=== PATIENT | male | born 1945 | race Caucasian/White ===

== ENCOUNTER 2024-07-25 10:25 | Emergency (ER) | payer MEDICARE, OTHER, SELFPAY ==
[2024-07-25 10:26] VITALS: BMI 28.0
--- NOTE | 2024-07-25 10:28 | EKG_ITS ---
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
[2024-07-25 10:36] VITALS: BP 136/73; PULSE 82; RESP 19; TEMP 37.1; O2SAT 95
--- NOTE | 2024-07-25 10:42 | XR_ITS ---
Examination: AP chest single view Technique one AP portable semiupright chest single view Exam date and time: July 25, 2024 1112 hours Comparison April 07, 2023 INDICATIONS: Onset acute chest pain today. FINDINGS: No significant cardiac enlargement Stable position cardiac leads. No pneumonia or pulmonary edema IMPRESSION: No pneumonia or pulmonary edema
[2024-07-25] MEDS: ASPIRIN 81 MG CHEW 324 MG PO (10:54)
[2024-07-25 11:05] VITALS: BP 134/82; PULSE 88; RESP 18; TEMP 37.1; O2SAT 93
--- NOTE | 2024-07-25 11:15 | PD.EDCHEST ---
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 Described as aching in sensation, initially rating as severe. However, since arriving to the ED and during my evaluation, patient is pain free. 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 No other associated symptoms or complaints reported. Denies fevers, chills, sweats, abdominal pain, n/v/d, or urinary symptoms. Related Data Home Medications ?Medication ?Instructions ?Recorded ?Confirmed ticagrelor 90 mg tablet (Brilinta) 90 mg PO BID 01/10/20 11/09/22 aspirin 81 mg capsule 81 mg PO QDAY 11/08/22 11/09/22 ezetimibe 10 mg tablet 10 mg PO QDAY 11/08/22 11/09/22 lisinopril 10 mg tablet 10 mg PO QDAY 11/08/22 11/09/22 pantoprazole 40 mg tablet,delayed 40 mg PO QDAY 11/08/22 11/09/22 release spironolactone 25 mg tablet 25 mg PO QDAY 11/08/22 11/09/22 Allergies Allergy/AdvReac Type Severity Reaction Status Date / Time No Known Allergies Allergy Verified 07/25/24 10:28 Review of Systems Review of Systems Systems Reviewed: All systems reviewed, normal except as documented Past Medical History Past Medical History CARDIAC: Positive Cardiac Disorders and Hypertension Surgical History SURGICAL: Positive Coronary Artery Bypass Graft, Coronary Stent, Abdominal Surgery and Bowel Surgery Social History SMOKING STATUS: Never smoker ED Exam General Limitations: Present no limitations General appearance: Present alert and in no apparent distress (Patient walks with a cane) Head Head exam: Present atraumatic, normocephalic and normal inspection Eye Eye exam: Present normal appearance, PERRL and EOMI ENT ENT exam: Present normal exam, normal oropharynx and mucous membranes moist Neck Neck exam: Present normal inspection, full ROM and trachea midline Chest Chest inspection: Present normal inspection and symmetric chest wall rise Respiratory Respiratory exam: Present normal lung sounds bilaterally Cardiovascular Cardiovascular exam: Present regular rate, normal rhythm and normal heart sounds Abdominal Exam Abdominal exam: Present soft and normal bowel sounds Extremities Exam Extremities exam: Present normal inspection and full ROM Back Exam Back exam: Present normal inspection and full ROM Neurological Exam Neurological exam: Present alert, oriented X3 and CN II-XII intact Psychiatric Psychiatric exam: Present normal affect and normal mood Skin Skin exam: Present warm, dry, intact and normal color Course Course Course Narrative: chest xray ordered to help determine etiology of chest pain. Quality Measures none Orders Category Date Time Status Software Systems Architect STAT Care 07/25/24 10:42 Completed Continuous Pulse Oximetry ONCE Care 07/25/24 10:42 Completed EKG (ED ONLY) *Do not use* NOW Care 07/25/24 10:28 Completed Insert IV STAT Care 07/25/24 10:42 Completed Discharge Routine Discharge 07/25/24 13:46 Active EKG (ED Only) Stat Exams 07/25/24 10:28 Draft XR chest 1V portable Stat Exams 07/25/24 10:42 Completed B-Type Natriuretic Peptide Stat Lab 07/25/24 10:54 Completed CBC Stat Lab 07/25/24 10:54 Completed Comprehensive Metabolic Panel Stat Lab 07/25/24 10:54 Completed Lipase Stat Lab 07/25/24 10:54 Completed Magnesium Stat Lab 07/25/24 10:54 Completed Partial Thromboplastin Time Stat Lab 07/25/24 10:54 Completed Troponin I Stat Lab 07/25/24 10:54 Completed Troponin I Stat Lab 07/25/24 13:10 Completed Aspirin Chew Med 07/25/24 10:42 Discontinued 324 mg PO X1 ONE Vital Signs Vital signs: Vital Signs Temperature 98.7 F 07/25/24 10:36 Pulse Rate 82 07/25/24 10:36 Respiratory Rate 19 07/25/24 10:36 Blood Pressure 136/73 H 07/25/24 10:36 Pulse Oximetry (%) 95 07/25/24 10:36 Oxygen Delivery Method Room Air 07/25/24 10:36 Pulse ox is 95% on room air which is adequate. Chest Pain MDM Narrative MDM Narrative:: Marissa Rhodes am scribing for and in the presence of Dr. Rutherford. Patient data External records reviewed:: [facility] previous records (I reviewed ED visit on 01/10/2020 for sleep apnea ) Clinical information provided by:: patient Social determinants that could affect healthcare access:: none Patient has the following chronic illnesses:: Hypertension How is presenting disease/condition affected by chronic disease/condition?: uneffected by Evaluation data The following diagnostics were reviewed and interpreted by me:: lab results, radiology exam(s) and EKG tracing(s) (Sinus rhythm with first degree AV block, rate 77, no acute ST or T-wave changes. ) Lab and/or radiology exams considered but not ordered:: None Interpretation Summary: Ordering Physician: Benson Rutherford MD Date of Service: 07/25/24 Procedure(s): XR chest 1V portable Accession Number(s): [id number] cc: Benson Rutherford MD; Keyon Hankins MD; NO PRIMARY/FAMILY,PHYSICIAN~ Examination: AP chest single view Technique one AP portable semiupright chest single view Exam date and time: July 25, 2024 1112 hours Comparison April 07, 2023 INDICATIONS: Onset acute chest pain today. FINDINGS: No significant cardiac enlargement Stable position cardiac leads. No pneumonia or pulmonary edema IMPRESSION: No pneumonia or pulmonary edema Dictated By: Keyon Hankins MD Signed By: <Electronically signed by Keyon Hankins MD in [place]> 07/25/24 1145 Medications / Prescriptions Medications or Prescriptions considered but not ordered:: None Medication administrations:: Medication Administration History Discontinued Medications Aspirin (Aspirin 81 Mg Chew) 324 mg PO X1 ONE Stop: 07/25/24 10:43 Last Admin: 07/25/24 10:54 Dose: 243 mg Documented By: DO Comments: pt took 81mg at home prior to arrival. pt given 243mg to equal 324mg per providers orders See above Consultations Consultation(s) initiated? (list below): No Diagnosis Chest Pain Differential Diagnosis: pneumothorax, stable angina, unstable angina pectoris, atypical chest pain, st elevation myocardial infarction, costochondritis, chest pain and biliary colic Most likely diagnosis given after review of the tests above:: Chest pain Admission Indicated Admission indicated?: not indicated Admission Request Was there a request for admission?: No Disposition Plan Disposition Plan: Discharge Discharge Attestation Discharge Attestation: The patient and all family members were given an opportunity to ask questions and understood the discharge instructions. Discharge instructions specifically effects, indications for sooner follow up or return to the emergency department, and the expected course of current diagnosis. Patient condition: Stable Discharge Plan Plan Patient Disposition: HOME (Self Care) Patient condition on transfer: Stable Prescriptions/Referrals Prescriptions/Med Rec: No Action Brilinta 90 mg Tablet 90 mg PO BID spironolactone 25 mg tablet 25 mg PO QDAY pantoprazole 40 mg tablet,delayed release (DR/EC) 40 mg PO QDAY lisinopril 10 mg tablet 10 mg PO QDAY ezetimibe 10 mg tablet 10 mg PO QDAY aspirin 81 mg Capsule 81 mg PO QDAY Referrals: No Primary/Family,Physician [Primary Care Provider] - In 1 week Problem List Clinical Impression: Chest pain Patient/Caregiver Discharge Instructions Education Materials: ED Chest Pain, Uncertain Cause Print Language: Sammarinese Stand Alone Forms: Gail Award Info., Patient Portal Info Letter
[2024-07-25 11:24] LABS: Basophils % (Auto) 0 % (0-2.5); Eosinophils # (Auto) 0.1 Thou/mm3 (0.0-0.5); Eosinophils % (Auto) 1 % (0-10); Hematocrit 47.5 % (41.0-53.0); Hemoglobin 16.3 g/dL (13.5-16.0); Immature Granulocytes % (Auto) 0 % (0-0); Immature Granulocytes Auto 0.02 Thou/mm3 (0.00-0.00); Lymphocytes # (Auto) 1.2 Thou/mm3 (1.0-4.8); Lymphocytes % (Auto) 11 % (10-50); Mean Corpuscular HGB Conc 34.3 g/dl (31.0-37.0); Mean Corpuscular Hemoglobin 32.2 pg (25.0-35.0); Mean Corpuscular Volume 94 fL (80-100); Monocytes # (Auto) 0.8 Thou/mm3 (0.0-0.8); Monocytes % (Auto) 7 % (0-12); Neutrophils # (Auto) 8.6 Thou/mm3 (1.8-7.7); Neutrophils % (Auto) 80 % (37-80); Nucleated Red Blood Cell % 0 /100 WBC (0); Platelet Count 260 Thou/mm3 (140-440); RDW Standard Deviation 43.8 fL (35.1-43.9); Red Blood Count 5.06 Miln/mm3 (4.50-5.90); White Blood Count 10.7 Thou/mm3 (3.8-10.6)
[2024-07-25 11:39] LABS: Partial Thromboplastin Time 26.2 Seconds (22.0-36.0)
[2024-07-25 11:56] LABS: Alanine Aminotransferase 26 U/L (10-49); Albumin, Serum 4.4 gm/dL (3.4-4.8); Albumin/Globulin Ratio 1.6 (1.2-2.2); Alkaline Phosphatase 52 U/L (46-116); Anion Gap 8 (7-16); Aspartate Amino Transferase 23 U/L (0-34); B-Type Natriuretic Peptide 60 pg/mL (0-100); BUN/Creatinine Ratio 13 Ratio (12-20); Bilirubin,Total 0.5 mg/dL (0.3-1.2); Blood Urea Nitrogen 17 mg/dL (9-23); Calcium 9.8 mg/dL (8.3-10.6); Calcium (Corrected) 9.8 mg/dL (8.5-10.1); Carbon Dioxide 28.6 mMol/L (20.0-31.0); Chloride 106 mMol/L (98-107); Creatinine (Component) 1.3 mg/dL (0.6-1.3); Estimated Creatinine Clearance 60.1 mL/min (>60); Globulin 2.7 gm/dL (2.3-3.5); Glucose 174 mg/dL (74-106); Lipase 45 U/L (12-53); Magnesium 2.1 mg/dL (1.6-2.6); Osmolality,Calculated 290 (275-295); Potassium 4.9 mMol/L (3.4-5.1); Sodium 143 mMol/L (136-145); Total Protein 7.1 gm/dL (5.7-8.2); Troponin I < 0.020 ng/mL (0.0-0.045); eGFR 56 See Note
[2024-07-25 12:00] VITALS: BP 139/72; PULSE 77; RESP 25; TEMP 37.1; O2SAT 100
[2024-07-25 12:07] VITALS: PULSE 66
[2024-07-25 13:43] LABS: Troponin I < 0.020 ng/mL (0.0-0.045)
== END 2024-07-25 14:19 | disposition home or self-care (01) ==
PROVIDERS: Emergency Provider Emergency Medicine
DX: R07.2 Precordial pain (principal); I44.0 Atrioventricular block, first degree; I10 Essential (primary) hypertension
CPT/HCPCS: 36415; 71045; 80053; 83690; 83735; 83880; 84484; 85025; 85730; 93005; 99284; A9270

== ENCOUNTER → 2024-10-15 | Outpatient (CLI) | payer MEDICARE, OTHER, SELFPAY ==
[2024-10-15 08:56] LABS: Basophils # (Auto) 0.0 Thou/mm3 (0.0-0.2); Basophils % (Auto) 0 % (0-2.5); Eosinophils # (Auto) 0.2 Thou/mm3 (0.0-0.5); Eosinophils % (Auto) 2 % (0-10); Hematocrit 47.6 % (41.0-53.0); Hemoglobin 16.3 g/dL (13.5-16.0); Immature Granulocytes Auto 0.02 Thou/mm3 (0.00-0.00); Lymphocytes # (Auto) 1.7 Thou/mm3 (1.0-4.8); Lymphocytes % (Auto) 24 % (10-50); Mean Corpuscular HGB Conc 34.2 g/dl (31.0-37.0); Mean Corpuscular Hemoglobin 32.1 pg (25.0-35.0); Mean Corpuscular Volume 94 fL (80-100); Monocytes # (Auto) 0.8 Thou/mm3 (0.0-0.8); Monocytes % (Auto) 10 % (0-12); Neutrophils # (Auto) 4.6 Thou/mm3 (1.8-7.7); Neutrophils % (Auto) 63 % (37-80); Nucleated Red Blood Cell # 0.00 Thou/mm3 (0.00-0.00); Nucleated Red Blood Cell % 0 /100 WBC (0); Platelet Count 217 Thou/mm3 (140-440); RDW Standard Deviation 44.4 fL (35.1-43.9); Red Blood Count 5.07 Miln/mm3 (4.50-5.90); White Blood Count 7.3 Thou/mm3 (3.8-10.6)
[2024-10-15 08:58] LABS: INR 1.1 (0.9-1.3); Partial Thromboplastin Time 27.1 Seconds (22.0-36.0); Prothrombin Time 11.7 Seconds (9.0-12.2)
[2024-10-15 09:04] LABS: Glucose Estimated Average 171 mg/dL (80-131); Hemoglobin A1C 7.6 % Hgb (4.8-6.0)
[2024-10-15 09:28] LABS: Vitamin D 25 Hydroxy Total 51.4 ng/mL (7.3-40.2)
[2024-10-15 09:32] LABS: Alanine Aminotransferase 24 U/L (10-49); Albumin, Serum 4.1 gm/dL (3.4-4.8); Albumin/Globulin Ratio 1.6 (1.2-2.2); Alkaline Phosphatase 47 U/L (46-116); Anion Gap 8 (7-16); Aspartate Amino Transferase 24 U/L (0-34); BUN/Creatinine Ratio 10 Ratio (12-20); Bilirubin,Total 0.6 mg/dL (0.3-1.2); Blood Urea Nitrogen 13 mg/dL (9-23); Calcium 9.6 mg/dL (8.3-10.6); Calcium (Corrected) 9.6 mg/dL (8.5-10.1); Carbon Dioxide 27.0 mMol/L (20.0-31.0); Cardiac Risk Estimate 4.2 RATIO (4.0-6.7); Chloride 108 mMol/L (98-107); Cholesterol 184 mg/dL (132-200); Creatinine (Component) 1.3 mg/dL (0.6-1.3); Free T4 (Free Thyroxine) 1.33 ng/dL (0.89-1.76); Globulin 2.6 gm/dL (2.3-3.5); Glucose 164 mg/dL (74-106); HDL Cholesterol 44 mg/dL (40-60); LDL Cholesterol,Calculated 111 mg/dL (0-130); Osmolality,Calculated 289 (275-295); Potassium 5.4 mMol/L (3.4-5.1); Sodium 143 mMol/L (136-145); Thyroid Stimulating Hormone 1.69 uIU/mL (0.55-4.78); Total Protein 6.7 gm/dL (5.7-8.2); Triglycerides 145 mg/dL (30-150); eGFR 56 See Note
== END | disposition home or self-care (01) ==
LOC: COPL 06:56
PROVIDERS: PCP Internal Medicine; Referring Provider Internal Medicine; Visit Provider Internal Medicine
DX: E11.9 Type 2 diabetes mellitus without complications (principal); E55.9 Vitamin D deficiency, unspecified; E78.2 Mixed hyperlipidemia; E03.9 Hypothyroidism, unspecified
CPT/HCPCS: 36415; 80053; 80061; 82306; 83036; 84439; 84443; 85025; 85610; 85730

== ENCOUNTER → 2024-10-30 | Outpatient (CLI) | payer MEDICARE, OTHER, SELFPAY ==
[2024-10-30 15:38] LABS: Thyroid Stimulating Hormone 1.12 uIU/mL (0.55-4.78)
[2024-11-04 14:43] LABS: ANA Screen, IFA NEGATIVE (NEGATIVE)
== END | disposition home or self-care (01) ==
LOC: COPL 14:19
PROVIDERS: PCP Internal Medicine; Referring Provider Specialist; Visit Provider Specialist
DX: E78.5 Hyperlipidemia, unspecified (principal)
CPT/HCPCS: 36415; 84443; 86038

== ENCOUNTER 2025-01-08 08:00 | Day surgery (SDC) | payer MEDICARE, OTHER, SELFPAY ==
[2025-01-07 14:07] VITALS: BMI 26.6
[2025-01-08] VITALS (9 sets, daily range): BP systolic 119–154; BP diastolic 67–86; PULSE 69–88; RESP 12–20; TEMP 36.8; O2SAT 92–98; BMI 26.3
[2025-01-08] MEDS: SODIUM CHLORIDE 0.9% 500 ML 500 ML 20 ML IV (08:45)
[2025-01-08] MEDS: BENZOCAINE 20% (Hurricaine) SPRAY 1 DOSE TOP (08:45)
[2025-01-08] MEDS: MIDAZOLAM INJ 1 MG/ML VIAL 2 ML (ASD USE ONLY) 2 MG IVP (08:49)
[2025-01-08] MEDS: fentaNYL CIT INJ 50 mCg/ML AMP 2ML (ASD USE ONLY) IVP (08:49)
== END 2025-01-08 09:55 | disposition home or self-care (01) ==
PROVIDERS: PCP Internal Medicine; Referring Provider Specialist; Visit Provider Specialist
PROC: (CPT 43239; principal; 2025-01-08 09:15)
DX: K22.2 Esophageal obstruction (principal); K20.90 Esophagitis, unspecified without bleeding; K29.70 Gastritis, unspecified, without bleeding; I25.10 Atherosclerotic heart disease of native coronary artery without angina pectoris; I49.9 Cardiac arrhythmia, unspecified; Z95.0 Presence of cardiac pacemaker; Z98.61 Coronary angioplasty status; Z79.01 Long term (current) use of anticoagulants; Z79.899 Other long term (current) drug therapy; Z79.82 Long term (current) use of aspirin
CPT/HCPCS: 43239; 43450; A4217; A4649; J1200; J2250; J3010; J7999; A9270

== ENCOUNTER → 2025-01-14 | Outpatient (CLI) | payer MEDICARE, OTHER, SELFPAY ==
[2025-01-14 08:51] LABS: Glucose Estimated Average 143 mg/dL (80-131); Hemoglobin A1C 6.6 % Hgb (4.8-6.0)
[2025-01-14 09:41] LABS: Anion Gap 7 (7-16); BUN/Creatinine Ratio 14 Ratio (12-20); Blood Urea Nitrogen 17 mg/dL (9-23); Calcium 9.6 mg/dL (8.3-10.6); Carbon Dioxide 29.4 mMol/L (20.0-31.0); Chloride 109 mMol/L (98-107); Creatinine (Component) 1.2 mg/dL (0.6-1.3); Glucose 151 mg/dL (74-106); Osmolality,Calculated 293 (275-295); Phosphorous 2.8 mg/dL (2.4-5.1); Potassium 5.2 mMol/L (3.4-5.1); Sodium 145 mMol/L (136-145); eGFR > 60 See Note
[2025-01-14 09:58] LABS: Albumin, Serum 4.3 gm/dL (3.4-4.8); Calcium (Corrected) 9.6 mg/dL (8.5-10.1)
== END | disposition home or self-care (01) ==
LOC: COPL 07:01
PROVIDERS: PCP Internal Medicine; Referring Provider Internal Medicine; Visit Provider Internal Medicine
DX: E11.9 Type 2 diabetes mellitus without complications (principal)
CPT/HCPCS: 36415; 80069; 83036

== ENCOUNTER 2025-02-12 08:15 | Day surgery (SDC) | payer MEDICARE, OTHER, SELFPAY ==
[2025-02-11 14:57] VITALS: BMI 26.6
[2025-02-12] VITALS (8 sets, daily range): BP systolic 115–155; BP diastolic 69–87; PULSE 60–71; RESP 13–23; TEMP 36.2–36.6; O2SAT 91–98; BMI 26.1
[2025-02-12] MEDS: BENZOCAINE 20% (Hurricaine) SPRAY 1 DOSE TOP (09:56)
[2025-02-12] MEDS: SODIUM CHLORIDE 0.9% 500 ML 500 ML 20 ML IV (09:56)
[2025-02-12] MEDS: fentaNYL CIT INJ 50 mCg/ML AMP 2ML (ASD USE ONLY) IVP (09:58)
[2025-02-12] MEDS: MIDAZOLAM INJ 1 MG/ML VIAL 2 ML (ASD USE ONLY) 2 MG IVP (09:58)
== END 2025-02-12 10:45 | disposition home or self-care (01) ==
PROVIDERS: PCP Internal Medicine; Referring Provider Specialist; Visit Provider Specialist
PROC: (CPT 43239; principal; 2025-02-12 09:30)
DX: K22.2 Esophageal obstruction (principal); K29.70 Gastritis, unspecified, without bleeding; I10 Essential (primary) hypertension; I25.10 Atherosclerotic heart disease of native coronary artery without angina pectoris; Z95.1 Presence of aortocoronary bypass graft; Z98.61 Coronary angioplasty status; Z79.02 Long term (current) use of antithrombotics/antiplatelets
CPT/HCPCS: 43248; A4649; C1769; J1200; J2250; J3010; J7999; A9270